=== PATIENT | male | born 1990 | race Caucasian/White ===

== ENCOUNTER → 2020-11-29 | Day surgery (SDC) | payer OTHER ==
[~2020-11-29] MED LIST: BUSPIRONE HCL15 MG PO; LISINOPRIL10 MG PO; OMEPRAZOLE20 M1 PO; PEPCID20 MG PO; PHENERGAN 25 MG25 M1 PO; RISPERIDONE0.25 MG PO; VIT D PO; ZOLOFT50 MG PO; ZYRTEC10 MG PO
[2020-11-30 16:11] LABS: ENDOMYSIAL ANTIBODY IGA Negative (Negative); IMMUNOGLOBULIN A, QN, SERUM 245 mg/dL (90-386); T-TRANSGLUTAMINASE (TTG) IGA <2 U/mL (0-3); T-TRANSGLUTAMINASE (TTG) IGG 5 U/mL (0-5)
== END | disposition home or self-care (01) ==
LOC: OR 07:43
PROVIDERS: Internal Medicine Gastroenterology
DX: K29.50 Unspecified chronic gastritis without bleeding (principal); K21.00 Gastro-esophageal reflux disease with esophagitis, without bleeding; K64.0 First degree hemorrhoids; E66.01 Morbid (severe) obesity due to excess calories; I10 Essential (primary) hypertension; K21.9 Gastro-esophageal reflux disease without esophagitis; G47.30 Sleep apnea, unspecified; Z68.41 Body mass index [BMI] 40.0-44.9, adult; Z99.89 Dependence on other enabling machines and devices; Z87.891 Personal history of nicotine dependence; Z88.8 Allergy status to other drugs, medicaments and biological substances; Z79.899 Other long term (current) drug therapy
CPT/HCPCS: 36415; 82784; J2250; J2704; J7030

== ENCOUNTER 2021-02-21 19:41 | Emergency (ER) | payer OTHER ==
[2021-02-21 20:03] LABS: HEMOGLOBIN 14.9 gm/dl (14.0-17.5); RED BLOOD COUNT 4.71 M/UL (4.20-5.50); WHITE BLOOD COUNT 4.9 K/UL (4.5-11.0)
[2021-02-21 20:27] LABS: BUN/CREATININE RATIO 13 (0-10)
[2021-02-21] MEDS ORDERED: MUCINEX DM ER1 EACH PO (23:51)
[2021-02-21] MEDS ORDERED: IBUPROFEN800 MG PO (23:51)
== END 2021-02-22 | disposition home or self-care (01) ==
LOC: ER1 19:41
PROVIDERS: Physician Assistant
DX: U07.1 COVID-19 (principal); J20.8 Acute bronchitis due to other specified organisms; R79.1 Abnormal coagulation profile; I10 Essential (primary) hypertension; E66.9 Obesity, unspecified; Z90.49 Acquired absence of other specified parts of digestive tract; Z88.1 Allergy status to other antibiotic agents; Z88.8 Allergy status to other drugs, medicaments and biological substances
CPT/HCPCS: 71045; 80053; 82550; 82553; 83874; 83880; 84484; 85025; 85379; 85610; 85730; 93005; 99285; Q9967